=== PATIENT | male | born 1940 | race Caucasian/White ===

== ENCOUNTER 2024-03-04 13:30 | Emergency (ER) | payer MEDICARE, OTHER, SELFPAY ==
[2024-03-04 13:33] VITALS: BP 116/49
--- NOTE | 2024-03-04 16:01 | ED.GENMED ---
History of Present Illness
General
Chief Complaint: Musculo-Skeletal Complaint
Source: patient
Exam Limitations: none
Time Seen by Provider: 03/04/24 15:04
Nursing documentation reviewed up to this point in time: agreed with
History of Present Illness
History of Present Illness:
83 y/o M
NIDDM, htn, hld
mechanical trip and fall on pavement yesterday injuring R WRIST
no head strike
was behind him, says he just tripped
pain with turning his wrist
no numbnes/tingling/weakness, shoulder marianna, headache, neck pain, back pain, cp, abdominal marianna, knee pain etc.
Past History
Past History
ED Past Medical History: HTN, Hypercholesterolemia and NIDDM
Social History
Tobacco: Non-smoker
Review of Systems
Review of Systems
Allergies reviewed?: Yes
All Other Systems: Not applicable
Phy Exam
Physical Exam
Physical Exam:
GENERAL: Alert , in no apparent distress, comfortable at rest
HEAD: NCAT
CV: 2+ radial poulse
NEUROLOGICAL: Alert and oriented, no focal neuro deficits, , 5/5 strength, sensation intact, ambulation normal
SKIN: Warm and dry, bruising mild to distal wrist
MUSCULOSKELETAL:sts to R wrist with tenderness distal radius, pain with suppination/pronation
no deformity
no elbow tendneres
PSYCH: Normal and appropriate interaction.
Course
Orders/Labs/Results
Orders:
Orders
03/04/24 13:37
CR Wrist - Right Min 3 Views Urgent
Comment:
Reason For Exam: fall
Vital Signs
Initial and Last Documented VS:
Initial Vital Signs
Temp Pulse Resp BP Pulse Ox
36.8 C 76 18 116/49 97
03/04/24 13:33 03/04/24 13:33 03/04/24 13:33 03/04/24 13:33 03/04/24 13:33
Last Documented Vital Signs
Temp Pulse Resp BP Pulse Ox
36.8 C 80 18 120/52 97
03/04/24 13:33 03/04/24 16:22 03/04/24 16:22 03/04/24 16:22 03/04/24 16:22
MDM/Problems Addressed
Differential Diagnosis Includes:
fracture, bruise, sprain
MDM/Problems Addressed:
83 y/o M
R hand dominant
here with R wrist pain following mechanical fall onto wrist yetserday
no thinners
no loc, head strike
no other complaints
pain with suppination/pronation
no obvious defromity
small amount of swelling
nv intact
xrays indep reviewed show distal raidus fx that is mildly impacted
sugar tong splint applied by me
cap refill intact
d/c home
*Critical Care Note
Total Time (30-74mins, 75-104mins- exclusive of procedures): Not Applicable
ED Attending Note
-
Portions of this chart may have been created with voice recognition software.� Occasional wrong word or��sound alike� substitutions may have occurred due to the inherent limitations of voice recognition software.
Discharge Plan
Departure
Patient Disposition: Home (Routine Discharge)
Date of Disposition: 03/04/24
Time of Disposition: 16:03
Patient with high blood pressure during this ER visit?: No
Condition: Fair
Covid-19: Not Applicable
Discharge Problem:
Closed right radial fracture
Instructions: Wrist Fracture (DC)
Prescriptions:
No Action
Amitriptyline
10 mg PO DAILY
Aspirin Low (Enteric Coated):
81 mg PO DAILY
Atorvastatin
20 mg PO HS
metformin 1,000 MG tablet extended release 24hr
1,000 mg PO BID
Glipizide
10 mg PO DAILY
Januvia:
100 mg PO DAILY
Metoprolol
25 mg PO DAILY
Multiple Vitamins
1 tab PO DAILY
Prandin:
1 mg PO TID
Ramipril
10 mg PO DAILY
cephalexin 500 MG capsule
500 mg PO TID Qty: 20 0RF
Referrals:
Feliberto Patiño MD [Active] - Follow up in 5-7 days (ortho)
Chase Kaur DO, Resident [Family Provider] -
Activity Restrictions/Additional Instructions:
YOU BROKE YOUR RADIUS
YOU SHOULD FOLLOW UP WITH ORTHO
LEAVE THE SPLINT ON AND DO NOT GET IT WET
COVER WITH A BAG WHILE YOU SHOWER
USE THE SLING DURING THE DAY
ICE OFF AND ON
TYLENOL FOR PAIN
RETURN FOR: SEVER EPAIN, NUMBNESS/TINGLING/ COLOR CHANGE OR ANY COCNERNS.
Interventions
Interventions:
*Risk Screen - Suicide Last Done: 03/04/24 13:33
*General Assessment Last Done: 03/04/24 13:33
*Neglect/Abuse Screening Last Done: 03/04/24 13:33
*ED COVID-19 Vaccine History Last Done: 03/04/24 16:20
*Nursing Disposition Last Done: 03/04/24 16:22
ED-Musculoskeletal Assessment Last Done: 03/04/24 16:20
Discharge Date and Time
Discharge Date/Time: 03/04/24 16:23
Print Language: MONGOLIAN
[2024-03-04 16:22] VITALS: BP 120/52
== END 2024-03-04 16:23 | disposition home or self-care (01) ==
LOC: EMR 13:30
PROVIDERS: EMERGENCY PHYSICIAN Emergency Medicine
DX: S52.501A Unspecified fracture of the lower end of right radius, initial encounter for closed fracture (principal); W01.0XXA Fall on same level from slipping, tripping and stumbling without subsequent striking against object, initial encounter; E11.9 Type 2 diabetes mellitus without complications; E78.00 Pure hypercholesterolemia, unspecified; I10 Essential (primary) hypertension
CPT/HCPCS: 99283; 29125; 73110